=== PATIENT | female | born 1995 | race Caucasian/White ===

== ENCOUNTER 2019-07-22 10:59 | Outpatient (RCR) | payer BC, SELFPAY ==
[2019-05-30 09:10] VITALS: BMI 36.1
[2019-05-30 09:37] VITALS: BMI 36.1
[2019-06-23 19:17] VITALS: BP 116/71; PULSE 95
[2019-06-27 18:12] VITALS: BP 116/71; PULSE 92
--- NOTE | 2019-06-27 18:15 | PC.NURSE ---
pt discharged by aury cordero rn around [id number]
--- NOTE | 2019-06-27 19:18 | PC.NURSE ---
dr hallman called and given pt report. dr hallman informed of pt's reactive tracing and ada results. no new orders orders received.
[2019-07-13 16:48] VITALS: BP 108/69; PULSE 92
--- NOTE | ~2019-07-22 | US_ITS ---
EXAMINATION: US OB limited w BPP DATE: 07/22/2019 12:04 INDICATION: Gestational diabetes during third trimester TECHNIQUE: Real-time pelvic ultrasound was performed. The interpreting radiologist was not present fo r the study. COMPARISON: None. FINDINGS: There is a single living fetus in vertex presentation. The placenta is anterior. heart rate is 165 beats per minute (bpm). Oligohydramnios with amniotic fluid index of 6.4 cm which is 3 standard deviations below the mean (2.5th%-97.5%: 6.4-25.5 at 39 weeks estimated gestational age) Biophysical profile performed by the technologist: breathing (30 sec sustained breathing in 30 minutes): 2 out of 2 movement (3 gross body movements in 30 minutes): 2 out of 2 tone (one episode of qosjqil-scixblclv-qxfaivq limb movement): 2 out of 2 Amniotic fluid pocket (2 cm): 2 out of 2 Total score: 8 out of 8 IMPRESSION: 1. Single living fetus in vertex presentation with heart rate of 165 bpm. 2. Biophysical profile 8 out of 8. 3. Oligohydramnios with amniotic fluid index measuring 6.4 cm. Reviewed, dictated and finalized at location A.
--- NOTE | ~2019-07-22 | US_ITS ---
EXAMINATION: US OB limited EXAM DATE: 06/27/2019 17:49 INDICATION: Gestational diabetes. Check amniotic fluid index. Third trimester. TECHNIQUE: Pelvic obstetrical transabdominal sonogram was performed by a technologist. There are mu ltiple grayscale and Doppler images available for interpretation. Comparison is made to prior examina tion from 12/28/2018. FINDINGS: There is a single fetus identified in vertex presentation with a heart rate of 150 beats pe r minute. The placenta is located in the anterior position. There is no sonographic evidence of retr oplacental hemorrhage identified. The amniotic fluid index is 15.6 centimeters, which is normal. Amn iotic fluid has some internal echoes floating inside, could be debris or meconium. IMPRESSION: 1. Single fetus in vertex presentation with heart rate 150 beats per minute. 2. Normal COREY 15.6 cm with some internal debris or meconium. Reviewed, dictated and finalized at location A. [employer] MANA[employer]ING [employer]OR
--- NOTE | ~2019-07-22 | US_ITS ---
EXAMINATION: US OB limited w BPP DATE: 07/07/2019 11:15 INDICATION: Gestational diabetes. Third trimester. TECHNIQUE: Real-time pelvic ultrasound was performed. COMPARISON: Ultrasound 06/27/2019, 12/28/2018 FINDINGS: There is a single living fetus in vertex presentation. The placenta is anterior. heart rate is 159 beats per minute (bpm). The amniotic fluid index is 16.1 cm, which is normal. Biophysical profile performed by the technologist: breathing (30 sec sustained breathing in 30 minutes): 2 out of 2 movement (3 gross body movements in 30 minutes): 2 out of 2 tone (one episode of hfzrvby-jazuplova-ltfohzk limb movement): 2 out of 2 Amniotic fluid pocket (2 cm): 2 out of 2 Total score: 8 out of 8 IMPRESSION: 1. Single living fetus in vertex presentation. 2. Biophysical profile 8 out of 8. Reviewed, dictated and finalized at location A.
--- NOTE | ~2019-07-22 | US_ITS ---
EXAMINATION: US OB limited w BPP DATE: 07/13/2019 16:58 INDICATION: Gestational diabetes TECHNIQUE: Real-time pelvic ultrasound was performed. The interpreting radiologist was not present fo r the study. COMPARISON: None. FINDINGS: There is a single living fetus in vertex presentation. The placenta is anterior. heart rate is 142 beats per minute (bpm). The amniotic fluid index is 17.9 cm which is normal Biophysical profile performed by the technologist: breathing (30 sec sustained breathing in 30 minutes): 2 out of 2 movement (3 gross body movements in 30 minutes): 2 out of 2 tone (one episode of iciwdsk-cxzuzlind-jvbeshv limb movement): 2 out of 2 Amniotic fluid pocket (2 cm): 2 out of 2 Total score: 8 out of 8 IMPRESSION: 1. Single living fetus in vertex presentation. 2. Biophysical profile 8 out of 8. 3. Normal amniotic fluid index. Reviewed, dictated and finalized at location A.
[2019-07-22 11:38] VITALS: BP 120/72; PULSE 106
== END 2019-07-27 14:36 | disposition home or self-care (01) ==
LOC: ANHOBOP 10:59
PROVIDERS: PCP Family Medicine; Visit Provider Student in an Organized Health Care Education/Training Program
DX: O24.410 Gestational diabetes mellitus in pregnancy, diet controlled (principal); Z3A.35 35 weeks gestation of pregnancy; Z3A.37 37 weeks gestation of pregnancy; Z3A.39 39 weeks gestation of pregnancy; Z71.89 Other specified counseling; Z71.3 Dietary counseling and surveillance
CPT/HCPCS: 59025; 76815; 76819; 97802; G0108

== ENCOUNTER 2019-07-24 17:54 | Inpatient (IN) | payer BC, SELFPAY ==
[2019-07-24] VITALS (11 sets, daily range): BP systolic 96–125; BP diastolic 57–76; PULSE 86–105; TEMP 36.5; BMI 36.6
--- NOTE | 2019-07-24 18:54 | LDADM ---
This patient, Azra Gong, was admitted to Labor/Delivery/Recovery 108 on 07/24/19 at 17:54. Plans for labor, pain management and were discussed with patient. Patient/family oriented to hospital policies and general routines including ID bracelet, bed and alarms, visiting hours, pain management, procedures, bathroom and other care routines, personal items, smoking policy, room service/diet and guest tray routines, infant security routines, and visiting hours. Patient/Family are encouraged to report perceived risks to care and to ask questions if they do not understand what they are told or what they should do. See OBIX for further documentation.
[2019-07-24 18:58] LABS: Basophils Percent Auto 0.3 % (0.2-1.2); Eosinophils Absolute Auto 0.8 K/mm3 (0-0.3); Eosinophils Percent Auto 5.3 % (0-4.4); Hematocrit 37.2 % (37.0-47.0); Hemoglobin 12.6 g/dL (12.0-15.0); Immature Granulocyte Absolute 0.15 K/mm3 (0.00-0.031); Immature Granulocyte Percent A 1.1 % (0-0.5); Mean Corpuscular HGB Conc 33.9 g/dl (32-36); Mean Corpuscular Hemoglobin 31.7 pg (26-34); Mean Corpuscular Volume 93.7 fl (80-100); Mean Platelet Volume 12.7 fl (7.4-10.4); Monocytes Absolute Auto 0.9 K/mm3 (0.1-0.6); Monocytes Percent Auto 6.4 % (2.6-8.5); Neutrophils Absolute Auto 9.9 K/mm3 (1.3-6.7); Neutrophils Percent Auto 69.9 % (45.5-73.1); Platelet Count Result 138 k/mm3 (150-375); Red Blood Count 3.97 M/mm3 (4.2-5.4); Red Cell Distribution Width 14.1 % (11.5-14.5); White Blood Count 14.1 K/mm3 (4.5-10.0)
[2019-07-24] MEDS: DINOPROSTONE 10 MG VAG INSERT VAGINAL (19:45)
[2019-07-24] MEDS: LACTATED RINGERS 1,000 ML 125 ML IV CONT (19:45)
[2019-07-24] MEDS: AMPICILLIN 2 GM/NS 100 ML 2 GM/100 ML BAG IVPB (19:45)
[2019-07-24 20:18] LABS: Glucose Point of Care 92 (65-105)
[2019-07-25] VITALS (151 sets, daily range): BP systolic 62–146; BP diastolic 38–118; PULSE 77–173; RESP 16–18; TEMP 36.6–37.3; O2SAT 96–100
[2019-07-25 00:22] LABS: Glucose Point of Care 101 (65-105)
[2019-07-25] MEDS: LACTATED RINGERS 1,000 ML 125 ML IV CONT ×2 (00:37→07:08)
--- NOTE | 2019-07-25 01:02 | WPDANESEPPF ---
Anes - Initial Pre Proc Eval Date/Time: 07/25/19 01:02 Surgeon: Kristy Spence MD Pre Op Diagnosis: Induction of Labor Patient Data Age: 23 Gender: F Height: 5 ft 5 in Weight: 100 kg Last Vital Signs Temp 36.8 C 07/25/19 00:40 Pulse 109 H 07/25/19 00:58 BP 146/118 H 07/25/19 01:00 Pulse Ox 100 07/25/19 00:58 Allergies Allergy/AdvReac Type Severity Reaction Status Date / Time No Known Allergies Allergy Verified 07/18/19 08:25 Home Medications Medication Instructions Recorded Confirmed Type metoclopramide HCl 5 mg tablet 5 mg PO DAILY 03/02/19 History vits 75-iron 28 mg-folic pkg PO 03/02/19 History acid 800 mcg-omega-3 oral combo pack alcohol swabs 1 pad TOPICAL QID #200 each 05/26/19 05/26/19 Rx blood-glucose meter #1 each 05/26/19 05/26/19 Rx lancets 30 gauge #100 each 05/26/19 05/26/19 Rx blood sugar diagnostic #100 each 05/29/19 Rx blood sugar diagnostic #100 each 05/30/19 05/30/19 Rx cholecalciferol (vitamin D3) 50 2,000 unit PO DAILY #90 tablet 06/06/19 06/06/19 Rx mcg (2,000 unit) tablet Laboratory Tests 07/24/19 07/24/19 07/24/19 18:49 18:49 19:28 WBC 14.1 K/mm3 H K/mm3 (4.5-10.0) RBC 3.97 M/mm3 L M/mm3 (4.2-5.4) Hgb 12.6 g/dL g/dL (12.0-15.0) Hct 37.2 % % (37.0-47.0) MCV 93.7 fl fl (80-100) MCH 31.7 pg pg (26-34) MCHC 33.9 g/dl g/dl (32-36) RDW 14.1 % % (11.5-14.5) Plt Count 138 k/mm3 L k/mm3 (150-375) MPV 12.7 fl H fl (7.4-10.4) Immature Gran % (Auto) 1.1 % H % (0-0.5) Neut % (Auto) 69.9 % % (45.5-73.1) Lymph % (Auto) 17.0 % L % (18.3-44.2) [place] % (Auto) 6.4 % % (2.6-8.5) Eos % (Auto) 5.3 % H % (0-4.4) Baso % (Auto) 0.3 % % (0.2-1.2) Lymph # (Auto) 2.40 K/mm3 K/mm3 (0.9-3.2) [place] # (Auto) 0.9 K/mm3 H K/mm3 (0.1-0.6) Eos # (Auto) 0.8 K/mm3 H K/mm3 (0-0.3) Baso # (Auto) 0.0 K/mm3 K/mm3 (0.0-0.1) Abs Immat Gran (auto) 0.15 K/mm3 H K/mm3 (0.00-0.031) Absolute Neuts (auto) 9.9 K/mm3 H K/mm3 (1.3-6.7) Absolute Nucleated RBC 0.0 K/mm3 K/mm3 (0.0-0.012) Nucleated RBC % 0.0 % % (0.0-0.2) POC Capillary Glucose RPR Pending Blood Type O Positive Antibody Screen Negative 07/24/19 07/25/19 20:16 00:04 WBC RBC Hgb Hct MCV MCH MCHC RDW Plt Count MPV Immature Gran % (Auto) Neut % (Auto) Lymph % (Auto) [place] % (Auto) Eos % (Auto) Baso % (Auto) Lymph # (Auto) [place] # (Auto) Eos # (Auto) Baso # (Auto) Abs Immat Gran (auto) Absolute Neuts (auto) Absolute Nucleated RBC Nucleated RBC % POC Capillary Glucose 92 mg/dl mg/dl 101 mg/dl mg/dl (65-105) (65-105) RPR Blood Type Antibody Screen Patient hx anesthesia problems: none Family hx anesthesia problems: none PMFSH Past Medical History Medical History Encounter for supervision of normal in multigravida in second trimester History of Family History Family History Grandparent Carcinoma of colon Family history of malignant neoplasm of breast Social History Social History Smoking status: Never smoker Alcohol intake: never Substance use: never Gender identity (if verbalized by the patient): Female Spiritual care concerns: No Anes - Eval Final PreProcedure Day of Procedure 07/25/19 01:02 Patient weight: obe
[2019-07-25] MEDS: AMPICILLIN 1 GM/NS 50 ML 1 GM/50 ML BAG IVPB ×2 (04:05)
[2019-07-25] MEDS: ONDANSETRON INJ 4 MG/2 ML VIAL IV PUSH (04:22)
--- NOTE | 2019-07-25 04:45 | PM.IMHP ---
H&P: HPI History of Present Illness Chief complaint: Induction of Labor Narrative: Azra Gong is a 23 year old female at 39 4/7 by EDC 07/27/19 established by ultrasound on 03/30/19. PNC course significant for diet controlled gestational diabetes. Had an isolated elevated blood pressure , normal labs. No pre-eclampsia symptoms, no headache or scotomata. OB labs: SMA neg, H/H , CF-neg,UA neg, O pos, ab-neg, HepB sag-neg, HepC ab neg, RPR neg, Vit D 24, Rub Im, HIV neg., 1 hour glucola 147, third trimester H/H , three hour- 97 183 113 85, GBS pos Review of Systems Review of Systems: All systems reviewed & are unremarkable except as noted in HPI and below Constitutional: Constitutional: Reports no additional constitutional complaints and Denies headache(s) Eyes: Eyes: Denies spots in vision ENT: Reports system reviewed and no additional complaints, except as documented and Denies headache(s) Cardiovascular: Cardiovascular: Denies chest pain and Denies dyspnea Respiratory: Respiratory: Denies dyspnea Gastrointestinal: Gastrointestinal: Reports no additional gastrointestinal complaints Genitourinary: Genitourinary: Reports amenorrhea Musculoskeletal: Musculoskeletal: Reports no additional musculoskeletal complaints Integumentary/Breasts: Skin/Breast: Denies breast mass and Denies rash Neurologic: Denies headache(s) Psychiatric: Psychiatric: Reports no additional psychiatric complaints [facility] Past Medical History Medical History (Updated 07/25/19 @ 05:00 by Roger Hagen MD) Elective induction of labor planned Encounter for supervision of normal in multigravida in second trimester History of Family History Family History Grandparent Carcinoma of colon Family history of malignant neoplasm of breast Social History Social History Smoking status: Never smoker Alcohol intake: never Substance use: never Gender identity (if verbalized by the patient): Female Spiritual care concerns: No Meds Home Medications and Allergies Home Medications Medication Instructions Recorded Confirmed Type metoclopramide HCl 5 mg tablet 5 mg PO DAILY 03/02/19 History vits 75-iron 28 mg-folic pkg PO 03/02/19 History acid 800 mcg-omega-3 oral combo pack alcohol swabs 1 pad TOPICAL QID #200 each 05/26/19 05/26/19 Rx blood-glucose meter #1 each 05/26/19 05/26/19 Rx lancets 30 gauge #100 each 05/26/19 05/26/19 Rx blood sugar diagnostic #100 each 05/29/19 Rx blood sugar diagnostic #100 each 05/30/19 05/30/19 Rx cholecalciferol (vitamin D3) 50 2,000 unit PO DAILY #90 tablet 06/06/19 06/06/19 Rx mcg (2,000 unit) tablet Allergies Allergy/AdvReac Type Severity Reaction Status Date / Time No Known Allergies Allergy Verified 07/18/19 08:25 Vital Signs Vital Signs - 24 hr 07/24/19 18:36 07/24/19 18:45 07/24/19 19:00 Temperature Pulse Rate 91 104 H 91 Blood Pressure 120/70 117/70 107/60 Pulse Oximetry 07/24/19 19:15 07/24/19 20:00 07/24/19 20:15 Temperature Pulse Rate 99 92 105 H Blood Pressure 107/68 112/57 L 100/76 Pulse Oximetry 07/24/19 20:30 07/24/19 20:45 07/24/19 21:00 Temperature Pulse Rate 90 95 92 Blood Pressure 114/70 107/76 107/73 Pulse Oximetry 07/24/19 21:15 07/24/19 21:30 07/25/19 00:40 Temperature 97.7 F 98.2 F Pulse Rate 95 86 110 H Blood Pressure 96/57 L 125/68 122/66 Pulse Oximetry 07/25/19 00:43 07/25/19 00:45 07/25/19 00:46 Temperature Pulse Rate 130 H 112 H Blood Pressure 125/64 115/96 H Pulse Oximetry 100 07/25/19 00:48 07/25/19 00:50 07/25/19 00:53 Temperature Pulse Rate 121 H 109 H Blood Pressure 129/114 H 128/73 Pulse Oximetry 100 100 07/25/19 00:55 07/25/19 00:56 07/25/19 00:58 Temperature Pulse Rate 115 H 106 H 109 H Blood Pressur
--- NOTE | 2019-07-25 05:09 | PM.OBPNVD ---
OB - PN: Subj Subjective Date/time seen: 07/25/19 05:09 FHT 145, Cat 1, cervix 9. No pitocin. Continue expectant management. OB - PN: Obj Data Labs CBC & Chem 7: 07/24/19 18:49 Labs: Laboratory Results - last 24 hr 07/24/19 07/24/19 07/24/19 18:49 19:28 20:16 WBC 14.1 H RBC 3.97 L Hgb 12.6 Hct 37.2 MCV 93.7 MCH 31.7 MCHC 33.9 RDW 14.1 Plt Count 138 L MPV 12.7 H Immature Gran % (Auto) 1.1 H Neut % (Auto) 69.9 Lymph % (Auto) 17.[address] [place] % (Auto) 6.4 Eos % (Auto) 5.3 H Baso % (Auto) 0.3 Lymph # (Auto) 2.40 [place] # (Auto) 0.9 H Eos # (Auto) 0.8 H Baso # (Auto) 0.0 Abs Immat Gran (auto) 0.15 H Absolute Neuts (auto) 9.9 H Absolute Nucleated RBC 0.0 Nucleated RBC % 0.0 POC Capillary Glucose 92 Blood Type O Positive Antibody Screen Negative 07/25/19 00:04 WBC RBC Hgb Hct MCV MCH MCHC RDW Plt Count MPV Immature Gran % (Auto) Neut % (Auto) Lymph % (Auto) [place] % (Auto) Eos % (Auto) Baso % (Auto) Lymph # (Auto) [place] # (Auto) Eos # (Auto) Baso # (Auto) Abs Immat Gran (auto) Absolute Neuts (auto) Absolute Nucleated RBC Nucleated RBC % POC Capillary Glucose 101 Blood Type Antibody Screen OB - PN A/P Time Spent With Patient Time: Total time spent is greater than 50% in coordination of care (as documented) at patient's floor/unit and/or counseling patient:
[2019-07-25 05:14] LABS: Glucose Point of Care 104 (65-105)
[2019-07-25] MEDS: FAMOTIDINE 20 MG/2 ML VIAL IV PUSH (07:08)
[2019-07-25 07:54] LABS: Rapid Plasma Reagin Non-Reactive (NonReactive)
[2019-07-25] MEDS: OXYTOCIN 30 UNITS/NS 500 ML 30 UNITS/500 ML BAG 125 UNITS IV CONT (09:41)
--- NOTE | 2019-07-25 09:52 | PM.OBPRVD ---
OB - Delivery Note Procedure Delivery date: 07/25/19 Procedure: Patient presented to Labor and delivery for scheduled induction of labor. Induction of labor was begun with Cervidil. Cervidil was placed at approximately 7:45 p.m. She was started on ampicillin for GBS prophylaxis. After a few hours, patient began experiencing frequent contractions and Cervidil was removed. Cervical exam at time of removal was approximately 4-5 cm dilated. She experienced SROM at approximately 12:30 a.m. Clear amniotic fluid was noted. Patient became increasing uncomfortable and requested an epidural for pain management which was placed without difficulty. Pitocin was started for labor augmentation. Patient was noted to be fully dilated at 7:30 a.m. Passive descent of head was permitted. She was prepped and draped for delivery. At 8:51 a.m., with 1st push, head was delivered atraumatically without difficulty in KASEY presentation. Occiput restituted to maternal left side. A nuchal cord x1 was noted and easily reduced. With subsequent push, the 's neck shoulders and rest of body were delivered without difficulty. The infant was crying spontaneously. Nose and mouth were suctioned with bulb suction. The was placed on maternal abdomen where care was assumed by waiting pediatric staff. Delayed cord clamping was performed for approximately 45 seconds. The cord was clamped and cut. A segment of cord was collected for cord gases. Cord blood was also obtained. The placenta was delivered spontaneously and intact. On inspection no lacerations were noted. Uterine fundus noted to be firm with bimanual massage. The patient was cleansed and dried. Estimated blood loss for entire delivery was 150 cc. The was a live-born male weighing 7 lb 15 oz, Apgars 9 and 9. Both mother and baby doing well at end of delivery. events: Gestational Diabetes and Labor Induction Induction method: other (cervidil) Delivery augmentation: pitocin Delivery monitor: external FHT Route of delivery: Laceration description: None Specimen: Yes (cord blood and cord gases) Estimated blood loss (mL): 150 Anesthesia type: Epidural Disposition: floor Complications: None [place] Baby Date of : 07/25/19 Time of : 08:51 Weeks of gestation at delivery: 39 gender: Male Weight (pounds): 7 Weight (ounces): 15 presentation: vertex position: Left Occiput Anterior Placenta delivery description: Spontaneous cord vessel description: 3 Vessels and Nuchal Cord (x1) score one minute: 9 score five minutes: 9
--- NOTE | 2019-07-25 12:47 | OBPPTRN ---
Patient transferred to post room #290 via W/C. Support person present. Oriented to unit, room, information board, rooming in, admission packet and security measures. Patient verbalizes understanding.
--- NOTE | 2019-07-25 14:20 | PC.NURSE ---
Mother called out for assist with feeding. Reviewed feeding cues, frequencies, duration of feedings, feeding elimination flow sheet, and signs of adequate intake. Demonstrated stimulation techniques to wake infant for feeding. Assisted with to breast. Reviewed positioning/alignment in cross cradle, holding breast in U hold and guided asymmetrical latch on. Discussed rational for each. After several attempts, was able to latch correctly. nursed eagerly, with steady draws and frequent swallowing noted. Reviewed signs of a correct latch, effective nursing and suck swallow ratio. Infant was able to maintain latch without discomfort to mother. Nipple care reviewed. Suggested mother stimulate to keep awake and nursing effectively. Instructed mother to call out for RN assistance if she is unable to latch for feeding or she has discomfort with nursing. Instructed feeding should be initiated three hours from start of last feeding or if feeding cues are noted before. Mother voiced understanding of information shared.
[2019-07-25] MEDS: IBUPROFEN 600 MG TABLET PO (18:52)
[2019-07-26] MEDS: IBUPROFEN 600 MG TABLET PO (04:34)
[2019-07-26 06:07] LABS: Hematocrit 34.4 % (37.0-47.0); Hemoglobin 11.4 g/dL (12.0-15.0)
[2019-07-26 07:30] VITALS: BP 103/70; PULSE 87; RESP 16; TEMP 36.4; O2SAT 100
[2019-07-26] MEDS: LANOLIN (LANSINOH) 7.5 GM CREAM 1 APPLIC TOPICAL (07:51)
[2019-07-26] MEDS: MULTIVIT/MIN/PREN/FOL AC/IRON TABLET 1 TAB PO (07:51)
--- NOTE | 2019-07-26 08:21 | PM.OBPNVD ---
OB - PN: Subj Subjective Date/time seen: 07/26/19 08:21 Patient comments: pain well controlled, tolerating diet and other (Decreasing lochia.) baby status: doing well and nursing well [place] feeding status: breast and bottle feeding OB - PN: Obj Data Labs CBC & Chem 7: 07/26/19 04:39 Labs: Laboratory Results - last 24 hr 07/26/19 04:39 Hgb 11.4 L Hct 34.4 L OB - PN A/P Plan day: 1 Plan: routine care Comments: Patient doing well. Time Spent With Patient Time: Total time spent is greater than 50% in coordination of care (as documented) at patient's floor/unit and/or counseling patient: Exam Psych: Affect: normal affect Other: Abd: fundus firm below umbilicus, nontender Ext: nontender
--- NOTE | 2019-07-26 10:11 | P.DS_ITS ---
DS: Diagnosis Admitting Diagnosis Admitting Diagnosis: Gestational diabetes mellitus in , unspecified con trol OB - DS: Summary OB Procedures : None OB Procedures Intrapartum: Spontaneous Vag Delivery OB Procedures: : None Peripartum Data Infant Delivery Method: Natural Vaginal Laceration description: None Procedures: Spontaneous vaginal delivery complications: none Status at Discharge Functional status at discharge: independent ambulation Overall status at discharge: patient is back to baseline Time Spent with Patient Time attestation: Total time spent providing and/or coordinating discharge services: Time spent: Less than 30 minutes Exam Const: General: comfortable and no acute distress Resp: Effort & Inspection: normal respiratory effort GI: Other: fundus firm -2umb, nontender Psych: Affect: normal affect Attitude: cooperative DS: Data Data Completed and Pending Labs on day of discharge: Labs from last 24 hours 07/26/19 04:39 Hgb 11.4 L Hct 34.4 L Discharge Plan Discharge Attending physician on discharge: Roger Hagen Discharging Clinician: Roger Hagen Anticipated Discharge Date/Time: 07/26/19 10:14 Patient Disposition: Home, Self-Care Activity: may shower and pelvic rest Diet: regular Discharge Instructions: Routine post instruction. May take Tyleno or Ibuprofen over the counter for pain as needed. Stand Alone Forms: General Discharge Information Follow-up/Referrals: Kristy Spence MD [Physician] - Call for Appointment Discharge Medications: No Action (DME) blood-glucose meter [FreeStyle Lite Meter] Kit See Rx Instructions .ROUTE .MEDSUPPLY Qty: 1 RF: 0 (DME) lancets 30 gauge misc See Rx Instructions .ROUTE .MEDSUPPLY Qty: 100 RF: 1 alcohol swabs [Alcohol Prep Pads] Pads, Medicated 1 pad TOPICAL QID Qty: 200 RF: 0 One A Day Women's DHA 28 mg iron- 800 mcg combo pack PO RF: 0 metoclopramide HCl [Reglan] 5 mg tablet 5 mg PO DAILY RF: 0 cholecalciferol (vitamin D3) 50 mcg (2,000 unit) tablet 2,000 unit PO DAILY Qty: 90 RF: 0 (DME) OneTouch Verio Strip See Rx Instructions .ROUTE .MEDSUPPLY Qty: 100 RF: 1 (DME) FreeStyle Lite Strips Strip See Rx Instructions .ROUTE .MEDSUPPLY Qty: 100 RF: 1 Date of admission: 07/24/19 17:54 Primary Care Provider: Solomon Macias Admitting Provider: Kristy Spence Attending physician on admission: Kristy Spence
--- NOTE | 2019-07-26 10:30 | PC.NURSE ---
Mother is able to independently latch infant with appropriate positioning/alignment. She denies any nipple discomfort, is feeding as required and waking to feed if needed. has had 8 effective feedings in the past 24 hours, and is currently meeting outcomes for weight, output, jaundice and feeding frequencies. Mother states she feels confident to continue effective at home. Reviewed transition to breast milk, signs of adequate intake, and engorgement/relief. Instructed to call ICP if intake/output less than required. Reviewed regular medications mother is taking. Information provided per [place]. Reviewed community resources on the [facility] website and in the Mom/Baby guide. Information on outpatient services provided. Mother has no further questions at this time.
[2019-07-28 11:02] VITALS: BP 125/80; PULSE 78; RESP 16; TEMP 36.6; O2SAT 98
== END 2019-07-26 13:57 | disposition home or self-care (01) | DRG 807 ==
LOC: ANHLDR 07-25 09:34 → ANHOB2 07-26 10:15 → ANHLDR 07-27 12:21 → ANHOB2 07-27 12:21
PROVIDERS: Admitting Provider Student in an Organized Health Care Education/Training Program; PCP Family Medicine; Visit Provider Obstetrics & Gynecology
DX: O99.824 Streptococcus B carrier state complicating childbirth (principal); Z37.0 Single live birth; Z3A.39 39 weeks gestation of pregnancy; Z23 Encounter for immunization; O99.214 Obesity complicating childbirth; E66.9 Obesity, unspecified; O24.420 Gestational diabetes mellitus in childbirth, diet controlled; O76 Abnormality in fetal heart rate and rhythm complicating labor and delivery; O69.81X0 Labor and delivery complicated by cord around neck, without compression, not applicable or unspecified
CPT/HCPCS: 36415; 59025; 76815; 76819; 85014; 85018; 85025; 86592; 86850; 86900; 86901; A9270; J0290; J2405; J2590; J2795; J7120

== ENCOUNTER 2020-03-29 09:18 | Emergency (ER) | payer BC, SELFPAY ==
--- NOTE | ~2020-03-29 | XR_ITS ---
EXAMINATION: XR ankle LT min 3V EXAM DATE: 03/29/2020 10:18 INDICATION: Initial encounter following injury, with pain of the left ankle. Twisting. TECHNIQUE: Left ankle frontal, lateral and oblique projections obtained and reviewed. There is no pr ior study for comparison. FINDINGS: The left ankle mortise appears intact. There are no acute fractures or dislocations ident ified. There is no subcutaneous gas. There is soft tissue swelling over the lateral malleolus. The re are no radiopaque foreign bodies. IMPRESSION: 1. Left ankle exam without acute osseous findings. 2. Soft tissue swelling. Reviewed, dictated and finalized at location A. NDER PRESS OPERATOR
[2020-03-29 09:38] VITALS: BP 139/86; PULSE 86; RESP 18; TEMP 36.6; O2SAT 100
--- NOTE | 2020-03-29 12:54 | ED.GENADULT ---
HPI - General Adult General Chief complaint: Extremity Injury, Lower Stated complaint: L ankle pain Time Seen by Provider: 03/29/20 11:24 Source: patient Mode of arrival: ambulatory Limitations: no limitations History of Present Illness HPI narrative: Patient is a 24-year-old female who presents to emergency department for evaluation of left lateral ankle pain after rolling the ankle while walking last night no she has bruising swelling with aching pain worse with any weightbearing or activity patient denies other injuries or complaints patient on arrival is in the room in no distress has not taken anything for her symptoms Related Data Home Medications Medication Instructions Recorded Confirmed etonogestrel-ethinyl estradiol vag ring VAGINAL 03/29/20 [EluRynasreen] Allergies Allergy/AdvReac Type Severity Reaction Status Date / Time No Known Allergies Allergy Verified 03/29/20 11:22 Review of Systems Review of Systems: All systems reviewed & are unremarkable except as noted in HPI and below PMFSH Past Medical History Medical History (Updated 03/29/20 @ 12:56 by Boom Finch PA-C) Elective induction of labor planned Encounter for supervision of normal in multigravida in second trimester History of Family History Family History Grandparent Carcinoma of colon Family history of malignant neoplasm of breast Social History Social History Smoking status: Never smoker Alcohol intake: never Substance use: never Gender identity (if verbalized by the patient): Female Spiritual care concerns: No Exam Narrative: Exam Narrative: GENERAL: Well-appearing, well-nourished, and in no acute distress. HEAD: Normocephalic, atraumatic. EYES: PERRLA and EOMI. ENT: Nares clear, no rhinorrhea or epistaxis. Mucous membranes moist. EXTREMITIES: Normal range of motion. No edema. Slight swelling and bruising to the lateral left ankle joint with slight tenderness just above SKIN: Warm, dry, no rash. NEURO: No focal deficits. Alert and oriented x3. Neurovascularly. Capillary refill less than 2 seconds PSYCH: Normal mood and affect. Course Course Emergency Course: Patient in the room in no distress aware of case findings treatment plan diagnosis agreeing to follow-up as directed Vital Signs Vital signs: Vital Signs Temperature 97.9 F 03/29/20 09:38 Pulse Rate 86 03/29/20 09:38 Respiratory Rate 18 03/29/20 09:38 Blood Pressure 139/86 03/29/20 09:38 Pulse Oximetry 100 03/29/20 09:38 Temperature 97.9 F 03/29/20 09:38 Pulse Rate 86 03/29/20 09:38 Respiratory Rate 18 03/29/20 09:38 Blood Pressure 139/86 03/29/20 09:38 Pulse Oximetry 100 03/29/20 09:38 Medical Decision Making MDM Narrative Medical decision making narrative: Patients injury or pain is consistent with musculoskeletal etiology. No signs of neurological or vascular compromise on exam. Compartments and tisues are soft without signs of compartment syndrome. Pain is felt appropriate for further evaluation on an outpatient basis. Vital Signs Vital Signs: Vital Signs Temperature 97.9 F 03/29/20 09:38 Pulse Rate 86 03/29/20 09:38 Respiratory Rate 18 03/29/20 09:38 Blood Pressure 139/86 03/29/20 09:38 Pulse Oximetry 100 03/29/20 09:38 Temperature 97.9 F 03/29/20 09:38 Pulse Rate 86 03/29/20 09:38 Respiratory Rate 18 03/29/20 09:38 Blood Pressure 139/86 03/29/20 09:38 Pulse Oximetry 100 03/29/20 09:38 Imaging Data Radiologist's impression: ITS Impressions Ankle X-Ray 03/29/20 10:22 IMPRESSION: 1. Left ankle exam without acute osseous findings. 2. Soft tissue swelling. Discharge Plan Discharge Clinical Impression: Sprain of ankle, left Patient Disposition: Home, Self-Care Condition: Stable Ins
== END 2020-03-29 13:08 | disposition home or self-care (01) ==
PROVIDERS: Emergency Provider Emergency Medicine; PCP Family Medicine
DX: S93.402A Sprain of unspecified ligament of left ankle, initial encounter (principal); X50.9XXA Other and unspecified overexertion or strenuous movements or postures, initial encounter
CPT/HCPCS: 73610; 99283

== ENCOUNTER 2024-01-27 10:43 | Outpatient (CLI) | payer BC, SELFPAY ==
--- NOTE | ~2024-01-27 | MMUS_ITS ---
EXAMINATION: MM diagnostic ignacio BI w shalom, US breast BI complete HISTORY: Mastodynia TECHNIQUE: Additional 3-D tomosynthesis images of the breasts were performed and synthetic 2-D images were generated. CAD analysis was submitted and interpreted. High resolution bilateral complete breas t ultrasound was performed. COMPARISON: None BREAST PARENCHYMAL COMPOSITION: Dense: The breasts are heterogeneously dense, which may obscure small masses FINDINGS: MAMMOGRAPHIC FINDINGS: There are no suspicious masses, calcifications or architectural distortion in either breast to sugges t malignancy. ULTRASOUND: Complete US of all 4 quadrants of the breast/s and retroareolar region was reviewed. Normal heterogen eous echotexture without focal solid or cystic mass. IMPRESSION: 1. No evidence for malignancy in either breast. 2. Routine yearly screening mammogram and regular clinical breast examination are recommended. BI-RADS Category 1: Negative Reviewed, dictated and finalized at location B. IMPRESSION: 1. No evidence for malignancy in either breast. 2. Routine yearly screening mammogram and regular clinical breast examination a re recommended. BI-RADS Category 1: Negative
== END 2024-01-27 10:44 | disposition home or self-care (01) ==
PROVIDERS: PCP Family Medicine; Visit Provider Nurse Practitioner Family
DX: N64.4 Mastodynia (principal); R92.30 Dense breasts, unspecified
CPT/HCPCS: 76641; 77062; 77066; G0279